=== PATIENT | male | born 1995 | race Hispanic/Latino ===

== ENCOUNTER 2025-06-24 20:34 | Inpatient (IN) | payer SELFPAY ==
[~2025-06-24 20:34] MED LIST: Iopamidol-370 76% 500 ML MDV (1 ML CHARGE) ONE
[2025-06-24] MEDS ORDERED: Ondansetron PF 4 MG/2 ML Vial ONE (21:22)
[2025-06-24] MEDS ORDERED: Mag-Al 1200 mg/1200 mg/30 ML UDCUP ONE (21:22)
[2025-06-24] MEDS ORDERED: Lidocaine Viscous Sol 2% 15 ml UD Cup ONE (21:23)
[2025-06-24] MEDS ORDERED: Famotidine/PF 20 mg/2ml Vial ONE (21:23)
[2025-06-24 21:53] LABS: #Basophils 0.06 10x3/uL (0.0-0.2); #Eosinophils 0.05 10x3/uL (0.0-0.7); #Monocytes 0.85 10x3/uL (0.11-0.59); #Neutrophils 10.98 10x3/uL (1.40-6.50); %Basophils 0.4 % (0.0-1.0); %Eosinophils 0.4 % (0.0-10.0); %Lymphocytes 12.4 % (21.0-51.0); %Monocytes 6.2 % (0.0-10.0); %Neutrophils 80.3 % (42.0-75.0); Hematocrit 46.4 % (42.0-52.0); Hemoglobin 15.4 g/dL (14.0-18.0); Mean Corpuscular Hemoglobin 28.0 pg (27.0-31.0); Mean Corpuscular Volume 84.4 fL (78.0-98.0); Platelet Count 225 10x3/uL (130-400); Red Blood Cell (RBC) Count 5.50 mill/uL (4.70-6.10); White Blood Cell (WBC) Count 13.67 10x3/uL (4.8-10.8)
[2025-06-24 22:13] LABS: ALT (SGPT) 26 U/L (Less than 45); AST (SGOT) 45 U/L (11-34); Albumin 4.9 g/dL (3.1-4.5); Alkaline Phosphatase 78 U/L (40-110); Anion Gap 17 mmol/L (10-20); BUN (Urea Nitrogen) 17 mg/dL (8.9-20.6); Bilirubin, Total 0.2 mg/dL (0.3-1.2); Calc. Creatinine Clearance 0 mL/min (70-130); Calcium 9.6 mg/dL (7.8-10.44); Carbon Dioxide 22 mmol/L (22-29); Chloride 102 mmol/L (98-107); Globulin 3.2 g/dL (2.4-3.5); Glucose 116 mg/dL (70-105); Lipase 30 U/L (8-78); Potassium 3.5 mmol/L (3.5-5.1); Sodium 137 mmol/L (136-145)
[2025-06-24] MEDS ORDERED: Aspirin 325 MG TAB ONE (23:11)
[2025-06-25] MEDS ORDERED: Enoxaparin 80 MG (0.8 mL) SYRINGE ONE (00:35)
[2025-06-25] MEDS ORDERED: Melatonin 3 MG TAB PO PRN (00:54)
[2025-06-25] MEDS ORDERED: Acetaminophen 325 MG TAB PO PRN (00:54)
[2025-06-25] MEDS ORDERED: Guaifenesin DM 100-10/5 ML UDCUP PO PRN (00:54)
[2025-06-25] MEDS ORDERED: Calcium Carbonate 500 MG ChewTAB PO PRN (00:54)
[2025-06-25] MEDS ORDERED: Senokot S 8.6-50 MG TAB PO PRN (00:54)
[2025-06-25] MEDS ORDERED: Electrolyte Replacement Protocol 1 EACH FS SCH (01:00)
[2025-06-25] MEDS ORDERED: PHOS-NAK 1 PKT PACK PO PRN (01:45)
[2025-06-25] MEDS ORDERED: Potassium Chloride 20 MEQ in Premix 1 BAG IVPB PRN (01:45)
[2025-06-25] MEDS ORDERED: Magnesium Sulfate In Water 4 GM in Premix 1 BAG IVPB PRN (01:45)
[2025-06-25 05:18] LABS: #Basophils 0.04 10x3/uL (0.0-0.2); #Eosinophils Less than 0.03 10x3/uL (0.0-0.7); #Monocytes 0.79 10x3/uL (0.11-0.59); #Neutrophils 7.00 10x3/uL (1.40-6.50); %Basophils 0.4 % (0.0-1.0); %Eosinophils 0.2 % (0.0-10.0); %Lymphocytes 21.6 % (21.0-51.0); %Monocytes 7.8 % (0.0-10.0); %Neutrophils 69.6 % (42.0-75.0); Hematocrit 44.9 % (42.0-52.0); Hemoglobin 15.0 g/dL (14.0-18.0); Mean Corpuscular Hemoglobin 28.5 pg (27.0-31.0); Mean Corpuscular Volume 85.2 fL (78.0-98.0); Platelet Count 231 10x3/uL (130-400); Red Blood Cell (RBC) Count 5.27 mill/uL (4.70-6.10); White Blood Cell (WBC) Count 10.07 10x3/uL (4.8-10.8)
[2025-06-25 05:47] LABS: Cardiac Risk 4.6 (Less than 4.5); Cholesterol 164.0 mg/dl (< 200 Desired); HDL Cholesterol 36.0 mg/dL (>60 Neg Risk); LDL Cholesterol, Calculated 117.0 mg/dL; Triglycerides 56.0 mg/dL (Less than 150)
[2025-06-25 06:15] LABS: ALT (SGPT) 22 U/L (Less than 45); AST (SGOT) 28 U/L (11-34); Albumin 4.3 g/dL (3.1-4.5); Alkaline Phosphatase 60 U/L (40-110); Anion Gap 12 mmol/L (10-20); BUN (Urea Nitrogen) 11 mg/dL (8.9-20.6); Bilirubin, Total 0.4 mg/dL (0.3-1.2); Calc. Creatinine Clearance 0 mL/min (70-130); Calcium 9.1 mg/dL (7.8-10.44); Carbon Dioxide 27 mmol/L (22-29); Chloride 105 mmol/L (98-107); Globulin 2.8 g/dL (2.4-3.5); Glucose 115 mg/dL (70-105); Potassium 4.3 mmol/L (3.5-5.1); Sodium 140 mmol/L (136-145)
[2025-06-25] MEDS: Pantoprazole 40 MG DR.TAB PO SCH (09:53)
[2025-06-25] MEDS: Aspirin 81 mg Enteric Coated Tablet PO SCH (09:54)
[2025-06-25] MEDS: Enoxaparin 100 MG (1 mL) SYRINGE SC SCH (11:57)
[2025-06-25 11:59] VITALS: BMI 26.9
[2025-06-25] MEDS: Enoxaparin 80 MG (0.8 mL) SYRINGE SC SCH (23:18)
[2025-06-27] MEDS: FLU (Fluarix Triv) 25-26 (6MOS UP)/PF 45 MCG/0.5 ML Syringe IM ONE (07:34)
[2025-06-27 11:28] VITALS: BP 116/71; TEMP 98.2
== END 2025-06-27 14:30 | disposition home or self-care (01) | DRG 391 ==
LOC: ERS 20:34 → 2NO 06-25 00:54 → OBSVTOIN 06-26 17:05
PROVIDERS: ADMIT Internal Medicine; ATTEND Internal Medicine
DX: R10.13 Epigastric pain (principal); I21.4 Non-ST elevation (NSTEMI) myocardial infarction; R11.2 Nausea with vomiting, unspecified; D72.829 Elevated white blood cell count, unspecified; F41.9 Anxiety disorder, unspecified; I10 Essential (primary) hypertension; Z79.899 Other long term (current) drug therapy; R79.89 Other specified abnormal findings of blood chemistry
CPT/HCPCS: 36415; 71045; 71275; 74174; 78452; 80053; 80061; 83036; 83690; 84484; 85025; 93005; 93017; 93306; 96361; 96372; 96374; 96375; A9502; G0378; J1308; J1650; J2405; Q9967